=== PATIENT | female | born 1950 | race Caucasian/White ===

== ENCOUNTER → 2017-05-02 | Outpatient (CLI) | payer OTHER ==
--- NOTE | ~2017-05-02 | MY29 ---
[facility] A Service of [facility] & [facility] RADIOLOGY TEXT RESULTS PATIENT: ANTON DIGGS LOCATION: [facility] : [birth year] UNIT #: [id number] AGE: [address]: Cristy Jj MD SEX: F ORDER DR: [id number] [facility] [place] [address] [place], [place] [address] [id number] O MR#: [id number] Acc #: [id number] NAME: ANTON DIGGS : 1950 SEX: F STUDY DATE/TIME: 05/02/2017 11:20 UNIT: [facility] ROOM: STUDY DESCRIPTION: MY MENDEZ SCREENING W/ CAD BILAT Attending Physician: Cristy Jj M.D. Referring Physician: Cristy Jj M.D. Ordering Physician: Cristy Jj M.D. Primary Care Physician: Cristy Jj M.D. MEDICAL IMAGING REPORT This report is preliminary unless electronic signature is present EXAM Digital screening mammogram 05/02/2017 HISTORY 67-year-old woman positive family history, grandmother. Noted skin lesion inferior hemisphere left breast. Lesion marked with wires. Annual screen. COMPARISON Mammograms 01/02/2013 01/13/2014 01/15/2015 02/09/2016. FINDINGS Digital imaging of each breast was completed utilizing screening protocol. Review includes FDA-approved CAD device. Large skin lesion on the left is apparent with peripheral wire markers. Occasional small nodule in each breast with benign characteristics. Parenchyma is predominately fatty replaced. I see no suspicious mass. There are no interval occurring microcalcifications and no architectural deformity. IMPRESSION Benign mammogram. Annual screening recommended. Patients over the age of 40 are entered into a reminder system with target due date for the next mammogram. A result letter will also be sent to the patient. BIRADS: 2, benign findings. Dictated by... Boby Truong M.D. THIS IS AN ELECTRONICALLY VERIFIED REPORT Boby Truong M.D. at 05/02/2017 3:17 PM [facility] A Service of [facility] & [facility] RADIOLOGY TEXT RESULTS PATIENT: ANTON DIGGS LOCATION: [facility] #: [id number] : [birth year] UNIT #: [id number] AGE: [address]: Cristy Jj MD SEX: F ORDER DR: ED/roger TD: 05/02/2017 13:54 JOB #: [id number] MEDICAL IMAGING REPORT Page 1 of 1 COPY
== END | disposition home or self-care (01) ==
LOC: CWCC 10:30
DX: Z12.31 Encounter for screening mammogram for malignant neoplasm of breast (principal); Z80.3 Family history of malignant neoplasm of breast; L98.9 Disorder of the skin and subcutaneous tissue, unspecified
CPT/HCPCS: G0202